=== PATIENT | male | born 1970 | race Caucasian/White ===

== ENCOUNTER 2017-04-02 03:20 | Emergency (ER) | payer MEDICARE, OTHER ==
[~2017-04-02] VITALS: Ht 193 cm; Wt 95.0 kg
[~2017-04-02 03:20] MED LIST: GUAI120015 PO; NO HOME MEDS; ONDA4TAB6 PO; PSEU-259 PO
[2017-04-02 05:09] VITALS: BP 111/74
== END 2017-04-02 05:14 | disposition home or self-care (01) ==
LOC: ER 03:23
DX: M20.42 Other hammer toe(s) (acquired), left foot (principal); F29 Unspecified psychosis not due to a substance or known physiological condition; Z60.2 Problems related to living alone; Z59.0 Homelessness; Z56.0 Unemployment, unspecified
CPT/HCPCS: 99284